=== PATIENT | male | born 1965 | race Caucasian/White ===

== ENCOUNTER → 2018-04-01 | Outpatient (CLI) | payer OTHER | LOC: RAD 15:20 | DX: M17.12 Unilateral primary osteoarthritis, left knee (principal) ==

== ENCOUNTER 2018-05-30 15:00 | Outpatient (RCR) | payer OTHER | END 2018-05-30 15:30 | disposition home or self-care (01) | LOC: PT 15:00 | DX: M17.12 Unilateral primary osteoarthritis, left knee (principal) ==

== ENCOUNTER 2024-06-22 15:12 | Outpatient (RCR) | payer OTHER | END 2024-07-16 | LOC: PT | DX: S83.242D Other tear of medial meniscus, current injury, left knee, subsequent encounter (principal); M23.42 Loose body in knee, left knee; X58.XXXD Exposure to other specified factors, subsequent encounter ==